=== PATIENT | male | born 1955 | race Asian ===

== ENCOUNTER 2017-08-20 16:03 | Inpatient (IN) | payer MEDICAID ==
[~2017-08-20] VITALS: Ht 167.6 cm; Wt 72.0 kg
[2017-08-20] MEDS ORDERED: PLEASE ENTER PATIENTS WEIGHT MC SCH (16:30)
[2017-08-20] MEDS ORDERED: SODIUM CHLORIDE FLUSH 10ML SYR IVF ONE (16:30)
[2017-08-20] MEDS ORDERED: SODIUM CHLORIDE 0.9% 1,000ML IVBOLUS ONE (16:30)
[2017-08-20] MEDS ORDERED: ONDANSETRON 2MG/ML, 2ML IVPush ONE (16:30)
[2017-08-20] MEDS ORDERED: PLEASE ENTER ALLERGIES MC SCH ×2 (16:30)
[2017-08-20 16:44] LABS: HEMATOCRIT 46.8 % (39.2-51.8); HEMOGLOBIN 15.3 g/dL (13.7-18.0); WHITE BLOOD COUNT 8.5 x10^3/uL (3.4-10)
[2017-08-20] MEDS ORDERED: GLIM1TAB2 PO (16:46)
[2017-08-20] MEDS ORDERED: LISI1TAB5 PO (16:46)
[2017-08-20] MEDS ORDERED: AMLO5TAB2 PO (16:47)
[2017-08-20 16:50] LABS: BLOOD UREA NITROGEN 29 mg/dL (7-18)
[2017-08-20] MEDS ORDERED: INSULIN REGULAR 100 UNITS/ML, 3ML VIAL ONE (16:58)
[2017-08-20] MEDS ORDERED: SODIUM CHLORIDE 0.9%, 500ML IVBOLUS ONE (17:00)
[2017-08-20] MEDS ORDERED: INSULIN REGULAR 100 UNITS/ML, 3ML VIAL IVPush ONE (17:00)
[2017-08-20 17:07] LABS: ASPARTATE AMINO TRANSFERASE 31 U/L (15-37)
[2017-08-20 17:08] LABS: IS PT STATUS REG ER OR PRE ER? YES
[2017-08-20] MEDS ORDERED: ASPIRIN 81 MG TABLET CHEW PO ONE (18:30)
[2017-08-20] MEDS ORDERED: HYDROcodone/APAP 5/325 TABLET PO PRN (18:30)
[2017-08-20] MEDS ORDERED: ONDANSETRON 2MG/ML, 2ML IVPush PRN (18:30)
[2017-08-20] MEDS ORDERED: hydrALAzine 20 MG/ML, 1ML IVPush PRN (18:30)
[2017-08-20] MEDS ORDERED: ACETAMINOPHEN 325 MG TABLET PO PRN (18:30)
[2017-08-20] MEDS ORDERED: TEMAZEPAM 15 MG CAPSULE PO PRN (18:30)
[2017-08-20] MEDS ORDERED: GADOBUTROL 7.5 MMOL/7.5 ML PFS ONE (18:49)
[2017-08-20] MEDS ORDERED: METOPROLOL TARTRATE 50 MG TABLET ONE (19:36)
[2017-08-20] MEDS ORDERED: ASPIRIN 81 MG TABLET CHEW ONE (19:37)
[2017-08-20] MEDS ORDERED: ENOXAPARIN 40 MG/0.4 ML ONE (19:37)
[2017-08-20] MEDS: METOPROLOL TARTRATE 50 MG TABLET PO SCH (19:43)
[2017-08-20] MEDS: ENOXAPARIN 40 MG/0.4 ML SQ SCH (19:43)
[2017-08-20] MEDS: SODIUM CHLORIDE 0.9% 1,000 ML IV SCH (19:44)
[2017-08-20] MEDS ORDERED: INSULIN DETEMIR 100 UNITS/ML, PEN SQ-INSULIN SCH (21:00)
[2017-08-20] MEDS: SIMVASTATIN 40 MG TABLET PO SCH (21:45)
[2017-08-20] MEDS: LISINOPRIL 20 MG TABLET PO SCH (21:45)
[2017-08-20] MEDS ORDERED: INSULIN ASPART 100 UNITS/ML, PEN SQ-INSULIN ONE (23:00)
[2017-08-21 02:44] VITALS: BP 117/70
[2017-08-21] MEDS: METOPROLOL TARTRATE 50 MG TABLET PO SCH ×2 (06:00→18:29)
[2017-08-21 06:14] LABS: BLOOD UREA NITROGEN 20 mg/dL (7-18)
[2017-08-21 06:20] LABS: ASPARTATE AMINO TRANSFERASE 27 U/L (15-37)
[2017-08-21 06:48] VITALS: BP 113/72
[2017-08-21] MEDS: AMLODIPINE 5 MG TABLET PO SCH (09:43)
[2017-08-21] MEDS: SODIUM CHLORIDE 0.9% 1,000 ML IV SCH ×2 (09:44→22:06)
[2017-08-21] MEDS: LISINOPRIL 20 MG TABLET PO SCH ×2 (09:44→22:10)
[2017-08-21 13:43] VITALS: BP 127/72
[2017-08-21] MEDS: ENOXAPARIN 40 MG/0.4 ML SQ SCH (18:30)
[2017-08-21 20:00] VITALS: BP 142/78
[2017-08-21] MEDS ORDERED: INSULIN ASPART 100 UNITS/ML, PEN SQ-INSULIN ONE (21:00)
[2017-08-21] MEDS: INSULIN DETEMIR 100 UNITS/ML, PEN SQ-INSULIN SCH (22:07)
[2017-08-21] MEDS: SIMVASTATIN 40 MG TABLET PO SCH (22:09)
[2017-08-22 01:48] VITALS: BP 135/79
[2017-08-22 05:50] LABS: BLOOD UREA NITROGEN 14 mg/dL (7-18)
[2017-08-22] MEDS: METOPROLOL TARTRATE 50 MG TABLET PO SCH (05:54)
[2017-08-22 06:38] VITALS: BP 151/86
[2017-08-22] MEDS: AMLODIPINE 5 MG TABLET PO SCH (08:06)
[2017-08-22] MEDS: LISINOPRIL 20 MG TABLET PO SCH ×2 (08:06→21:29)
[2017-08-22] MEDS: INSULIN DETEMIR 100 UNITS/ML, PEN SQ-INSULIN SCH ×2 (08:08→21:31)
[2017-08-22] MEDS: INSULIN ASPART 100 UNITS/ML, PEN SQ-INSULIN SCH ×4 (08:08→21:30)
[2017-08-22] MEDS: SODIUM CHLORIDE 0.9% 1,000 ML IV SCH ×2 (08:09→21:30)
[2017-08-22 08:46] LABS: PATH.CAST-FLAG NOT PRESENT; SPERM-FLAG NOT PRESENT; SRC-FLAG NOT PRESENT; XTAL-FLAG NOT PRESENT; YLC-FLAG NOT PRESENT
[2017-08-22] MEDS ORDERED: METO25TA35 PO (09:54)
[2017-08-22] MEDS ORDERED: LISI-170 PO (09:54)
[2017-08-22] MEDS ORDERED: METF500T4 PO (09:54)
[2017-08-22] MEDS ORDERED: SIMV40TA3 PO (09:54)
[2017-08-22] MEDS: CEFTRIAXONE PMX 2GM/50ML 50 ML IV SCH (10:53)
[2017-08-22 13:11] VITALS: BP 126/70
[2017-08-22 20:17] VITALS: BP 153/85
[2017-08-22] MEDS: SIMVASTATIN 40 MG TABLET PO SCH (21:29)
[2017-08-22] MEDS: ENOXAPARIN 40 MG/0.4 ML SQ SCH (21:30)
[2017-08-23 02:02] VITALS: BP 131/79
[2017-08-23] MEDS ORDERED: METOPROLOL TARTRATE 50 MG TABLET PO SCH (06:00)
[2017-08-23 07:06] VITALS: BP 137/70
[2017-08-23] MEDS ORDERED: INSU100I28 SQ-INSULIN (08:40)
[2017-08-23] MEDS ORDERED: LACT1CAP24 PO (08:44)
[2017-08-23] MEDS ORDERED: CIPR500T87 PO (08:44)
[2017-08-23] MEDS: LISINOPRIL 20 MG TABLET PO SCH (09:17)
[2017-08-23] MEDS: AMLODIPINE 5 MG TABLET PO SCH (09:17)
[2017-08-23] MEDS: INSULIN DETEMIR 100 UNITS/ML, PEN SQ-INSULIN SCH (09:18)
[2017-08-23] MEDS: CEFTRIAXONE PMX 2GM/50ML 50 ML IV SCH (09:18)
[2017-08-23] MEDS: INSULIN ASPART 100 UNITS/ML, PEN SQ-INSULIN SCH (09:19)
[2017-08-23] MEDS: SODIUM CHLORIDE 0.9% 1,000 ML IV SCH (09:19)
[2017-08-23] MEDS ORDERED: ASPI-515 PO (11:05)
== END 2017-08-23 12:37 | disposition home or self-care (01) | DRG 871 ==
LOC: ED 17:14 → EDIP 17:15 → ED 17:31 → 4WST 21:03
PROVIDERS: ADMIT Internal Medicine; ATTEND Internal Medicine
DX: A41.9 Sepsis, unspecified organism (principal); E43 Unspecified severe protein-calorie malnutrition; N17.0 Acute kidney failure with tubular necrosis; E11.10 Type 2 diabetes mellitus with ketoacidosis without coma; I67.4 Hypertensive encephalopathy; E87.1 Hypo-osmolality and hyponatremia; N39.0 Urinary tract infection, site not specified; I10 Essential (primary) hypertension; H53.8 Other visual disturbances; Z80.42 Family history of malignant neoplasm of prostate; Z86.73 Personal history of transient ischemic attack (TIA), and cerebral infarction without residual deficits; Z68.25 Body mass index [BMI] 25.0-25.9, adult; Z79.82 Long term (current) use of aspirin; Z79.899 Other long term (current) drug therapy
CPT/HCPCS: 36415; 70450; 70553; 80048; 80053; 80061; 81001; 82010; 82040; 82140; 82803; 82962; 83036; 83735; 84100; 84439; 84443; 84484; 85025; 87040; 87086; 93005; 93306; 96361; 96374; A9585; J0696; J1650; J1815; J7030; J7040